=== PATIENT | male | born 1955 | race Caucasian/White ===

== ENCOUNTER 2017-03-23 18:40 | Inpatient (IN) | payer BC, OTHER, SELFPAY ==
[~2017-03-23] VITALS: Ht 177.8 cm; Wt 85.7 kg
[~2017-03-23 18:40] MED LIST: CARV12.511 PO; DUTA0.5C15 PO; HYDR-4154 PO; LISI-617 PO; ONDA4TAB9 PO; SODI650T PO
[2017-03-23] MEDS ORDERED: METOPROLOL TARTRATE 1 MG/ML 5ML VIAL IV ONE ×2 (19:12→20:34)
[2017-03-23] MEDS ORDERED: NITROGLYCERIN 1GM/1 INCH PACKET TD ONE (19:12)
[2017-03-23 19:31] LABS: BASOPHILS % (AUTO) 0.5 % (0.0-5.0); EOSINOPHILS % (AUTO) 0.8 % (0.0-8.0); HEMATOCRIT 37.6 % (42-54); LYMPHOCYTES % (AUTO) 8.5 % (21.0-51.0); MEAN CORPUSCULAR HGB CONC 34.8 g/dL (32.0-36.0); MEAN CORPUSCULAR VOLUME 92.1 fL (79-99); MONOCYTES % (AUTO) 9.1 % (3.0-13.0); NEUTROPHILS % (AUTO) 81.1 % (40.0-77.0); PLATELET COUNT (AUTO) 278 K/uL (130-400); RED BLOOD CELL COUNT(AUTO) 4.08 MIL/uL (4.50-6.20); RED CELL DISTRIBUTION WIDTH 13.6 % (11.0-15.5); WHITE BLOOD COUNT (AUTO) 13.6 K/uL (4.8-10.8)
[2017-03-23 19:59] LABS: CREATININE 1.6 mg/dL (0.5-1.5); POTASSIUM 4.2 mmol/L (3.5-5.1)
[2017-03-23 20:22] LABS: ALBUMIN 3.4 g/dL (3.5-5.0); BILIRUBIN,TOTAL 0.4 mg/dL (0.2-1.0); TOTAL PROTEIN, SERUM 6.9 g/dL (6.0-8.3)
[2017-03-23 20:25] LABS: APPEARANCE,URINE Clear (CLEAR); BILIRUBIN,URINE Negative (NEGATIVE); COLOR,URINE Yellow (YELLOW); GLUCOSE, URINE (UA) Negative (NEGATIVE); KETONES,URINE Negative (NEGATIVE); LEUKOCYTE ESTERASE ,URINE Negative (NEGATIVE); NITRATE,URINE Negative (NEGATIVE); OCCULT BLOOD,URINE Negative (NEGATIVE); PH,URINE 6.5 (5.0-8.0); PROTEIN,URINE Negative (NEGATIVE); UROBILINOGEN,URINE 0.2 mg/dL (0.2-1.0)
[2017-03-23] MEDS ORDERED: HYDROMORPHONE 1 MG/1 ML AMP ONE (20:40)
[2017-03-23 20:46] LABS: CREATINE KINASE MB 0.7 ng/mL (0.5-3.6)
[2017-03-23] MEDS ORDERED: HYDRALAZINE HCL 20 MG/ML VIAL IV PRN ×3 (22:15→23:45)
[2017-03-23] MEDS: SODIUM CHLORIDE 0.9% 1000ML 1,000 ML IV SCH ×2 (22:15→22:33)
[2017-03-23] MEDS ORDERED: LIDOCAINE HCL-MPF 1% 2ML VIAL IVP PRN (22:45)
[2017-03-23] MEDS ORDERED: ONDANSETRON HCL 4 MG/2 ML VIAL IV PRN (22:45)
[2017-03-23] MEDS ORDERED: POTASSIUM CHLORIDE 20MEQ/100ML 100 ML IV PRN (22:45)
[2017-03-23] MEDS ORDERED: POTASSIUM CHLORIDE 10% ELIXIR 20 MEQ/15 ML UDCUP PO PRN (22:45)
[2017-03-23] MEDS ORDERED: POTASSIUM CHLORIDE 20 MEQ ERTAB PO PRN (22:45)
[2017-03-23] MEDS ORDERED: MEPERIDINE-PF 25 MG/ML SYG IVP PRN (22:45)
[2017-03-23] MEDS ORDERED: MEPERIDINE-PF 25 MG/ML SYG ONE (23:47)
[2017-03-24] MEDS ORDERED: SODIUM CHLORIDE 0.9% 1000ML 1,000 ML IV ONE (04:10)
[2017-03-24] MEDS ORDERED: HYDRALAZINE HCL 20 MG/ML VIAL ONE ×3 (04:10→12:56)
[2017-03-24] MEDS ORDERED: MEPERIDINE-PF 25 MG/ML SYG ONE ×3 (04:11→12:56)
[2017-03-24 06:18] LABS: HEMATOCRIT 36.6 % (42-54); MEAN CORPUSCULAR HGB CONC 34.3 g/dL (32.0-36.0); MEAN CORPUSCULAR VOLUME 93.3 fL (79-99); PLATELET COUNT (AUTO) 254 K/uL (130-400); RED BLOOD CELL COUNT(AUTO) 3.92 MIL/uL (4.50-6.20); RED CELL DISTRIBUTION WIDTH 13.6 % (11.0-15.5); WHITE BLOOD COUNT (AUTO) 14.1 K/uL (4.8-10.8)
[2017-03-24] MEDS: SODIUM CHLORIDE 0.9% 1000ML 1,000 ML IV SCH ×6 (06:33→22:33)
[2017-03-24 06:48] LABS: ALANINE AMINOTRANSFERASE 16 U/L (12-78); ALBUMIN 3.3 g/dL (3.5-5.0); AMYLASE 90 U/L (25-115); ASPARTATE AMINOTRANSFERASE 15 U/L (10-37); BILIRUBIN,TOTAL 0.7 mg/dL (0.2-1.0); CARBON DIOXIDE 27 mmol/L (21-32); CHLORIDE 96 mmol/L (101-111); CREATINE KINASE MB 0.6 ng/mL (0.5-3.6); CREATINE KINASE, TOTAL 77 U/L (21-232); CREATININE 1.2 mg/dL (0.5-1.5); GLOMERULAR FILTR. RATE CALC 65 mL/min (>60); GLUCOSE,RANDOM 120 mg/dL (70-105); LIPASE 422 U/L (114-286); MYOGLOBIN 72 ng/mL (10-92); POTASSIUM 4.1 mmol/L (3.5-5.1); SODIUM SERUM 131 mmol/L (136-145); TOTAL PROTEIN, SERUM 6.8 g/dL (6.0-8.3); TROPONIN I < 0.04 ng/mL (0.00-0.06); UREA NITROGEN, BLOOD 13 mg/dL (7-18)
[2017-03-24] MEDS ORDERED: FAMOTIDINE/PF 20 MG/2 ML VIAL IV ONE (08:03)
[2017-03-24] MEDS ORDERED: LABETALOL HCL 5 MG/ML 20ML VIAL IV ONE (08:04)
[2017-03-24] MEDS ORDERED: ONDANSETRON HCL 4 MG/2 ML VIAL ONE (08:18)
[2017-03-24] MEDS: LABETALOL 20 MG/4 ML DISP.SYRIN IV SCH ×2 (09:00→20:22)
[2017-03-24] MEDS: FAMOTIDINE/PF 20 MG/2 ML VIAL IV SCH ×2 (09:00→20:22)
[2017-03-24] MEDS: CREON 24000 UNIT PO SCH ×2 (14:00→21:00)
[2017-03-24] MEDS: SODIUM BICARBONATE 650 MG TAB PO SCH ×2 (14:00→21:00)
[2017-03-24 17:06] VITALS: BP 159/67
[2017-03-24 19:25] VITALS: BP 182/100
[2017-03-24] MEDS: CARVEDILOL 25 MG TABLET PO SCH (21:00)
[2017-03-24 21:45] VITALS: BP 183/94
[2017-03-24] MEDS: MEPERIDINE-PF 25 MG/ML SYG IV PRN (23:11)
[2017-03-24 23:15] VITALS: BP 199/100
[2017-03-25] VITALS (8 sets, daily range): BP systolic 141–169; BP diastolic 80–97
[2017-03-25] MEDS ORDERED: OMEP20CA10 PO (02:32)
[2017-03-25] MEDS ORDERED: IRON18TA PO (02:32)
[2017-03-25] MEDS ORDERED: CHOL200074 PO (02:32)
[2017-03-25] MEDS ORDERED: AMYL1CAP63 PO (02:32)
[2017-03-25] MEDS: MEPERIDINE-PF 25 MG/ML SYG IV PRN ×2 (03:54→18:37)
[2017-03-25 04:56] LABS: HEMATOCRIT 32.8 % (42-54); MEAN CORPUSCULAR HEMOGLOBIN 32.1 pg (27.0-33.0); MEAN CORPUSCULAR HGB CONC 34.6 g/dL (32.0-36.0); MEAN CORPUSCULAR VOLUME 92.7 fL (79-99); PLATELET COUNT (AUTO) 198 K/uL (130-400); RED BLOOD CELL COUNT(AUTO) 3.54 MIL/uL (4.50-6.20); RED CELL DISTRIBUTION WIDTH 13.4 % (11.0-15.5); WHITE BLOOD COUNT (AUTO) 13.4 K/uL (4.8-10.8)
[2017-03-25 05:05] LABS: CREATININE 1.2 mg/dL (0.5-1.5); POTASSIUM 3.8 mmol/L (3.5-5.1)
[2017-03-25] MEDS: SODIUM CHLORIDE 0.9% 1000ML 1,000 ML IV SCH ×4 (05:44→20:22)
[2017-03-25] MEDS: AVODART 0.5 MG PO SCH (09:00)
[2017-03-25] MEDS: CREON 24000 UNIT PO SCH ×3 (09:00→21:00)
[2017-03-25] MEDS: FERROUS SULFATE 325 MG TABLET.DR PO SCH (09:00)
[2017-03-25] MEDS: CARVEDILOL 25 MG TABLET PO SCH ×2 (09:00→21:00)
[2017-03-25] MEDS: LISINOPRIL 10 MG TABLET PO SCH (09:00)
[2017-03-25] MEDS: SODIUM BICARBONATE 650 MG TAB PO SCH ×3 (09:00→21:00)
[2017-03-25] MEDS: FAMOTIDINE/PF 20 MG/2 ML VIAL IV SCH ×2 (09:25→20:21)
[2017-03-25] MEDS: LABETALOL 20 MG/4 ML DISP.SYRIN IV SCH ×2 (09:27→20:22)
[2017-03-26 03:20] VITALS: BP 172/88
[2017-03-26 04:40] VITALS: BP 164/97
[2017-03-26] MEDS: SODIUM CHLORIDE 0.9% 1000ML 1,000 ML IV SCH (05:48)
[2017-03-26 05:52] LABS: HEMATOCRIT 30.5 % (42-54); MEAN CORPUSCULAR HEMOGLOBIN 32.7 pg (27.0-33.0); MEAN CORPUSCULAR HGB CONC 34.9 g/dL (32.0-36.0); MEAN CORPUSCULAR VOLUME 93.9 fL (79-99); PLATELET COUNT (AUTO) 190 K/uL (130-400); RED BLOOD CELL COUNT(AUTO) 3.24 MIL/uL (4.50-6.20); RED CELL DISTRIBUTION WIDTH 13.8 % (11.0-15.5); WHITE BLOOD COUNT (AUTO) 11.3 K/uL (4.8-10.8)
[2017-03-26 06:18] LABS: CREATININE 1.2 mg/dL (0.5-1.5); POTASSIUM 3.5 mmol/L (3.5-5.1)
[2017-03-26 07:30] VITALS: BP 174/98
[2017-03-26] MEDS: FERROUS SULFATE 325 MG TABLET.DR PO SCH (09:00)
[2017-03-26] MEDS: AVODART 0.5 MG PO SCH (09:00)
[2017-03-26] MEDS: LISINOPRIL 10 MG TABLET PO SCH (09:00)
[2017-03-26] MEDS: CARVEDILOL 25 MG TABLET PO SCH (09:00)
[2017-03-26] MEDS: CREON 24000 UNIT PO SCH (09:00)
[2017-03-26] MEDS: SODIUM BICARBONATE 650 MG TAB PO SCH (09:00)
[2017-03-26] MEDS: LABETALOL 20 MG/4 ML DISP.SYRIN IV SCH (09:04)
[2017-03-26] MEDS: FAMOTIDINE/PF 20 MG/2 ML VIAL IV SCH (09:04)
[2017-03-26 09:50] VITALS: BP 159/85
[2017-03-26 11:00] VITALS: BP 152/76
== END 2017-03-26 12:15 | disposition home or self-care (01) | DRG 439 ==
LOC: EDH 18:40 → EDHIP 20:50 → OBSVTOIN 03-24 10:14 → 3CH 03-24 16:30
PROVIDERS: ADMIT Family Medicine; ATTEND Family Medicine
DX: K85.90 Acute pancreatitis without necrosis or infection, unspecified (principal); E87.1 Hypo-osmolality and hyponatremia; E11.22 Type 2 diabetes mellitus with diabetic chronic kidney disease; N18.9 Chronic kidney disease, unspecified; F10.10 Alcohol abuse, uncomplicated; I12.9 Hypertensive chronic kidney disease with stage 1 through stage 4 chronic kidney disease, or unspecified chronic kidney disease; K21.9 Gastro-esophageal reflux disease without esophagitis; Z93.2 Ileostomy status; Z88.8 Allergy status to other drugs, medicaments and biological substances; Z91.048 Other nonmedicinal substance allergy status
CPT/HCPCS: 36415; 71046; 74021; 74176; 80048; 80053; 81003; 82150; 82550; 82553; 83690; 83874; 84478; 84484; 85025; 85027; 93005; G0378; J0360; J1170; J2175; J2405; J3490; J7030

== ENCOUNTER 2017-08-11 20:05 | Inpatient (IN) | payer BC ==
[~2017-08-11] VITALS: Ht 180.3 cm; Wt 80.9 kg
[~2017-08-11 20:05] MED LIST changes: +AMYL1CAP63 PO; +CHOL200074 PO; -DUTA0.5C15 PO; +DUTA0.5C17 PO; -HYDR-4154 PO; +IRON18TA PO; +OMEP20CA10 PO; -ONDA4TAB9 PO
[2017-08-11 20:40] LABS: BASOPHILS % (AUTO) 0.6 % (0.0-5.0); EOSINOPHILS % (AUTO) 2.3 % (0.0-8.0); HEMATOCRIT 40.1 % (42-54); LYMPHOCYTES % (AUTO) 14.1 % (21.0-51.0); MEAN CORPUSCULAR HEMOGLOBIN 30.5 pg (27.0-33.0); MEAN CORPUSCULAR HGB CONC 34.9 g/dL (32.0-36.0); MEAN CORPUSCULAR VOLUME 87.4 fL (79-99); MONOCYTES % (AUTO) 15.2 % (3.0-13.0); NEUTROPHILS % (AUTO) 67.8 % (40.0-77.0); PLATELET COUNT (AUTO) 373 K/uL (130-400); RED BLOOD CELL COUNT(AUTO) 4.59 MIL/uL (4.50-6.20); RED CELL DISTRIBUTION WIDTH 13.1 % (11.0-15.5); WHITE BLOOD COUNT (AUTO) 13.2 K/uL (4.8-10.8)
[2017-08-11 20:54] LABS: APPEARANCE,URINE Clear (CLEAR); BILIRUBIN,URINE Negative (NEGATIVE); COLOR,URINE Yellow (YELLOW); GLUCOSE, URINE (UA) Negative (NEGATIVE); KETONES,URINE Trace mg/dL (NEGATIVE); LEUKOCYTE ESTERASE ,URINE Negative (NEGATIVE); NITRATE,URINE Negative (NEGATIVE); OCCULT BLOOD,URINE Trace (NEGATIVE); PROTEIN,URINE POS 2+ (NEGATIVE)
[2017-08-11 20:54] LABS: INR 1.01 (0.85-1.15); PARTIAL THROMBOPLASTIN TIME 28.5 SEC (26.3-35.5); PROTHROMBIN TIME 10.6 SEC (9.6-11.6)
[2017-08-11 20:57] LABS: ALBUMIN 3.5 g/dL (3.5-5.0); BILIRUBIN,TOTAL 0.8 mg/dL (0.2-1.0); POTASSIUM 4.3 mmol/L (3.5-5.1); TOTAL PROTEIN, SERUM 7.9 g/dL (6.0-8.3)
[2017-08-11 20:59] LABS: B-TYPE NATRIURETIC PEPTIDE 12 pg/mL (0-100)
[2017-08-11 21:01] LABS: BACTERIA,URINE Few /HPF (None Seen); FINE GRANULAR CASTS,URINE 0-2 /LPF (None Seen); MUCUS,URINE Few LPF (None Seen); RBC,URINE 0-1 /HPF (0-1); SQUAMOUS EPITHELIAL CELL,UR 0-2 /HPF (0-2); WBC,URINE None Seen /HPF (0-1)
[2017-08-11 21:04] LABS: CREATININE 14.3 mg/dL (0.5-1.5)
[2017-08-11 21:21] LABS: RAPID GROUP A STREP NEGATIVE (NEGATIVE)
[2017-08-11] MEDS ORDERED: CEFTRIAXONE SODIUM 1 GM ONE (22:20)
[2017-08-11] MEDS ORDERED: ACETAMINOPHEN 325 MG TAB PO PRN ×2 (22:30)
[2017-08-11] MEDS: SODIUM CHLORIDE 0.9% 1000ML 1,000 ML IV SCH (22:30)
[2017-08-11] MEDS ORDERED: ONDANSETRON HCL MDV 20ML 2 MG/ML VIAL IVP PRN (22:30)
[2017-08-11] MEDS: CEFTRIAXONE SODIUM 1 GM IVP SCH (23:00)
[2017-08-11] MEDS: HEPARIN SODIUM 5000UNIT/ML 1ML VIAL SQ SCH (23:00)
[2017-08-12] MEDS ORDERED: LORAZEPAM 2 MG/ML 1 ML VIAL ONE (03:13)
[2017-08-12 03:33] LABS: EOSINOPHILS % (AUTO) 2.7 % (0.0-8.0); HEMATOCRIT 37.8 % (42-54); LYMPHOCYTES % (AUTO) 19.9 % (21.0-51.0); MEAN CORPUSCULAR HEMOGLOBIN 30.6 pg (27.0-33.0); MEAN CORPUSCULAR HGB CONC 33.9 g/dL (32.0-36.0); MEAN CORPUSCULAR VOLUME 90.5 fL (79-99); MONOCYTES % (AUTO) 14.8 % (3.0-13.0); NEUTROPHILS % (AUTO) 61.6 % (40.0-77.0); PLATELET COUNT (AUTO) 276 K/uL (130-400); RED BLOOD CELL COUNT(AUTO) 4.18 MIL/uL (4.50-6.20); RED CELL DISTRIBUTION WIDTH 13.6 % (11.0-15.5); WHITE BLOOD COUNT (AUTO) 15.7 K/uL (4.8-10.8)
[2017-08-12 03:38] LABS: ALBUMIN 3.3 g/dL (3.5-5.0); BILIRUBIN,TOTAL 0.7 mg/dL (0.2-1.0); POTASSIUM 4.5 mmol/L (3.5-5.1); TOTAL PROTEIN, SERUM 7.2 g/dL (6.0-8.3)
[2017-08-12] MEDS ORDERED: SODIUM CHLORIDE 0.9% 100 ML IV ONE (03:38)
[2017-08-12 03:40] LABS: CREATININE 13.4 mg/dL (0.5-1.5)
[2017-08-12] MEDS ORDERED: LORAZEPAM 2 MG/ML 1 ML VIAL IVP PRN ×2 (05:00→10:30)
[2017-08-12] MEDS: SODIUM CHLORIDE 0.9% 1000ML 1,000 ML IV SCH ×3 (05:10→23:08)
[2017-08-12] MEDS: FOLIC ACID 1 MG TABLET PO SCH (09:00)
[2017-08-12] MEDS: FAMOTIDINE/PF 20 MG/2 ML VIAL IV SCH (09:00)
[2017-08-12] MEDS: THIAMINE HCL 100 MG/ML 2ML VIAL IM SCH (09:00)
[2017-08-12] MEDS: HEPARIN SODIUM 5000UNIT/ML 1ML VIAL SQ SCH ×2 (09:00→21:00)
[2017-08-12] MEDS: MULTIVITAMIN TABLET PO SCH (09:00)
[2017-08-12] MEDS ORDERED: SODIUM CHLORIDE 0.9% 1000ML 1,000 ML IV ONE (09:15)
[2017-08-12] MEDS ORDERED: FAMOTIDINE/PF 20 MG/2 ML VIAL IV ONE (09:16)
[2017-08-12] MEDS ORDERED: THIAMINE HCL 100 MG/ML 2ML VIAL ONE (09:17)
[2017-08-12 10:44] VITALS: BP 111/63
[2017-08-12] MEDS ORDERED: COMPOUND IV MISC 1 EACH IVSOLN MISC PRN (12:00)
[2017-08-12] MEDS ORDERED: TRAMADOL HCL 50 MG TABLET PO PRN (13:15)
[2017-08-12 13:18] LABS: CREATININE,URINE RANDOM 107 mg/dL (30-135); SODIUM,URINE RANDOM 38 mmol/l (40-220)
[2017-08-12] MEDS: LEVETIRACETAM 500 MG in SODIUM CHLORIDE 0.9% 100 ML IV SCH ×2 (14:00→21:41)
[2017-08-12 16:41] VITALS: BP 136/84
[2017-08-12 19:50] VITALS: BP 133/78
[2017-08-12] MEDS: CEFTRIAXONE SODIUM 1 GM IVP SCH (23:08)
[2017-08-12 23:35] VITALS: BP 131/78
[2017-08-13 03:55] VITALS: BP 130/77
[2017-08-13 05:14] LABS: HEMATOCRIT 34.9 % (42-54); MEAN CORPUSCULAR HEMOGLOBIN 31.1 pg (27.0-33.0); MEAN CORPUSCULAR HGB CONC 34.8 g/dL (32.0-36.0); MEAN CORPUSCULAR VOLUME 89.3 fL (79-99); PLATELET COUNT (AUTO) 230 K/uL (130-400); RED BLOOD CELL COUNT(AUTO) 3.91 MIL/uL (4.50-6.20); RED CELL DISTRIBUTION WIDTH 13.3 % (11.0-15.5); WHITE BLOOD COUNT (AUTO) 8.8 K/uL (4.8-10.8)
[2017-08-13 05:24] LABS: INR 1.03 (0.85-1.15); PARTIAL THROMBOPLASTIN TIME 29.4 SEC (26.3-35.5); PROTHROMBIN TIME 10.8 SEC (9.6-11.6)
[2017-08-13 05:40] LABS: ALBUMIN 2.7 g/dL (3.5-5.0); B-TYPE NATRIURETIC PEPTIDE 91 pg/mL (0-100); BILIRUBIN,TOTAL 0.3 mg/dL (0.2-1.0); CREATININE 6.8 mg/dL (0.5-1.5); MAGNESIUM 1.4 mg/dL (1.80-2.40); PHOSPHORUS 4.9 mg/dL (2.5-4.9); POTASSIUM 3.6 mmol/L (3.5-5.1); THYROID STIMULATING HORMONE 0.74 uIU/mL (0.36-3.74); TOTAL PROTEIN, SERUM 6.5 g/dL (6.0-8.3); URIC ACID 10.2 mg/dL (2.6-7.2)
[2017-08-13 05:50] LABS: % IRON SATURATION 41.8 % (30-44)
[2017-08-13 05:52] LABS: BAND NEUTROPHILS % (MANUAL) 3 % (0-2); BASOPHILS % (MANUAL) 1 % (0-2); EOSINOPHILS % (MANUAL) 3 % (1-6); LYMPHOCYTES % (MANUAL) 12 % (22-44); MAN.DIFF COMMENT-IMPRESSION MANUAL DIFFERENTIAL; MONOCYTES % (MANUAL) 11 % (2-9); SEGMENTED NEUTROPHILS % 70 % (40-70)
[2017-08-13 05:53] LABS: PLATELET MORPHOLOGY COMMENT ADEQUATE
[2017-08-13] MEDS: LEVETIRACETAM 500 MG in SODIUM CHLORIDE 0.9% 100 ML IV SCH ×2 (06:00→14:00)
[2017-08-13] MEDS: SODIUM CHLORIDE 0.9% 1000ML 1,000 ML IV SCH ×3 (06:40→23:36)
[2017-08-13 07:53] VITALS: BP 138/75
[2017-08-13] MEDS: HEPARIN SODIUM 5000UNIT/ML 1ML VIAL SQ SCH ×2 (09:00→21:00)
[2017-08-13] MEDS: FOLIC ACID 1 MG TABLET PO SCH (09:17)
[2017-08-13] MEDS: MULTIVITAMIN TABLET PO SCH (09:17)
[2017-08-13] MEDS: THIAMINE HCL 100 MG/ML 2ML VIAL IM SCH (09:18)
[2017-08-13] MEDS: FAMOTIDINE/PF 20 MG/2 ML VIAL IV SCH (09:18)
[2017-08-13] MEDS: FOLIC ACID/VITAMIN B COMP W-C 1 MG CAPSULE PO SCH (09:19)
[2017-08-13] MEDS: MAGNESIUM 2GM PREMIX 50ML 50 ML IV SCH (10:00)
[2017-08-13] MEDS ORDERED: BENZONATATE 100 MG CAPSULE PO PRN (10:15)
[2017-08-13 12:14] VITALS: BP 139/81
[2017-08-13 16:55] VITALS: BP 158/88
[2017-08-13 20:20] VITALS: BP 149/88
[2017-08-13 20:28] VITALS: BP 149/88
[2017-08-13] MEDS: CEFTRIAXONE SODIUM 1 GM IVP SCH (23:17)
[2017-08-14 00:28] VITALS: BP 153/90
[2017-08-14 04:32] VITALS: BP 154/85
[2017-08-14 05:58] LABS: HEMATOCRIT 34.5 % (42-54); MEAN CORPUSCULAR HEMOGLOBIN 31.2 pg (27.0-33.0); MEAN CORPUSCULAR HGB CONC 34.6 g/dL (32.0-36.0); MEAN CORPUSCULAR VOLUME 90.3 fL (79-99); PLATELET COUNT (AUTO) 243 K/uL (130-400); RED BLOOD CELL COUNT(AUTO) 3.82 MIL/uL (4.50-6.20); RED CELL DISTRIBUTION WIDTH 13.2 % (11.0-15.5); WHITE BLOOD COUNT (AUTO) 8.3 K/uL (4.8-10.8)
[2017-08-14 06:07] LABS: CREATININE 3.3 mg/dL (0.5-1.5); MAGNESIUM 1.3 mg/dL (1.80-2.40); POTASSIUM 3.8 mmol/L (3.5-5.1); URIC ACID 6.8 mg/dL (2.6-7.2)
[2017-08-14 07:41] LABS: EOSINOPHILS % (MANUAL) 3 % (1-6); LYMPHOCYTES % (MANUAL) 21 % (22-44); MAN.DIFF COMMENT-IMPRESSION MANUAL DIFFERENTIAL; MONOCYTES % (MANUAL) 9 % (2-9); PLATELET MORPHOLOGY COMMENT ADEQUATE; SEGMENTED NEUTROPHILS % 67 % (40-70)
[2017-08-14 08:12] VITALS: BP 158/93
[2017-08-14] MEDS: HEPARIN SODIUM 5000UNIT/ML 1ML VIAL SQ SCH (09:00)
[2017-08-14] MEDS: SODIUM CHLORIDE 0.9% 1000ML 1,000 ML IV SCH (09:01)
[2017-08-14] MEDS: FOLIC ACID/VITAMIN B COMP W-C 1 MG CAPSULE PO SCH (09:10)
[2017-08-14] MEDS: MULTIVITAMIN TABLET PO SCH (09:10)
[2017-08-14] MEDS: FOLIC ACID 1 MG TABLET PO SCH (09:11)
[2017-08-14] MEDS: FAMOTIDINE/PF 20 MG/2 ML VIAL IV SCH (09:11)
[2017-08-14] MEDS: THIAMINE HCL 100 MG/ML 2ML VIAL IM SCH (09:14)
[2017-08-14] MEDS: MAGNESIUM 2GM PREMIX 50ML 50 ML IV SCH (09:53)
[2017-08-14 11:18] VITALS: BP 149/100
[2017-08-14 16:05] VITALS: BP 174/105
[2017-08-14] MEDS ORDERED: MAGN400T25 PO (17:16)
[2017-08-14] MEDS ORDERED: AMLO5TAB2 PO (17:16)
[2017-08-14 19:15] VITALS: BP 167/92
== END 2017-08-14 20:32 | disposition home or self-care (01) | DRG 683 ==
LOC: EDH 20:05 → EDHIP 22:01 → 4BH 08-12 09:52
PROVIDERS: ADMIT Internal Medicine Nephrology; ATTEND Internal Medicine Nephrology
PROC: 4A00X4Z Measurement of Central Nervous Electrical Activity, External Approach (ICD-10-PCS; principal; 2017-08-14)
DX: N17.9 Acute kidney failure, unspecified (principal); E87.1 Hypo-osmolality and hyponatremia; E72.20 Disorder of urea cycle metabolism, unspecified; F05 Delirium due to known physiological condition; R56.9 Unspecified convulsions; I12.9 Hypertensive chronic kidney disease with stage 1 through stage 4 chronic kidney disease, or unspecified chronic kidney disease; E86.0 Dehydration; D64.9 Anemia, unspecified; E83.42 Hypomagnesemia; F10.10 Alcohol abuse, uncomplicated; N18.9 Chronic kidney disease, unspecified; N40.0 Benign prostatic hyperplasia without lower urinary tract symptoms
CPT/HCPCS: 36415; 70450; 70551; 71045; 73020; 76700; 80048; 80053; 81001; 82140; 82150; 82550; 82570; 82728; 83540; 83550; 83605; 83690; 83735; 83880; 83935; 84100; 84300; 84443; 84484; 84550; 85025; 85610; 85730; 87040; 87507; 87804; 87880; 95819; A4218; J0696; J1644; J1953; J2060; J3411; J3475; J3490; J7030

== ENCOUNTER → 2023-07-18 | Outpatient (CLI) | payer MEDICARE ==
[~2023-07-18] MED LIST changes: +AMLO-257 PO; -DUTA0.5C17 PO; +DUTA0.5C37 PO; -LISI-617 PO; +MAGN400T25 PO; -OMEP20CA10 PO; +OMEP20CA12 PO
== END | disposition home or self-care (01) ==
LOC: RAH 10:30
PROVIDERS: ATTEND Family Medicine
DX: Z01.818 Encounter for other preprocedural examination (principal); I51.7 Cardiomegaly; M47.815 Spondylosis without myelopathy or radiculopathy, thoracolumbar region
CPT/HCPCS: 71046

== ENCOUNTER → 2023-11-18 | Outpatient (CLI) | payer MEDICARE | END | disposition home or self-care (01) | LOC: RAH 10:47 | PROVIDERS: ATTEND Family Medicine | DX: M19.012 Primary osteoarthritis, left shoulder (principal); M19.011 Primary osteoarthritis, right shoulder; M25.512 Pain in left shoulder; M25.511 Pain in right shoulder | CPT/HCPCS: 73030 ==

== ENCOUNTER → 2024-03-18 | Outpatient (CLI) | payer MEDICARE ==
--- NOTE | 2024-03-18 11:17 | HMCIMG ---
US BREAST COMPLETE UNILATERAL REASON: MASTODYNIA, LOCALIZED ENLARGED LYMPH NODES. COMPARISON: None TECHNIQUE: Left breast ultrasound study was performed. FINDINGS: No evidence of cystic or hypoechoic mass is seen of left breast. There is left axillary lymph node measuring 10 x 5 x 10 mm. If needed, mammogram may be helpful. IMPRESSION: No evidence of cystic or hypoechoic mass is seen of left chest.
== END | disposition home or self-care (01) ==
LOC: RAH 10:31
PROVIDERS: ATTEND Family Medicine
DX: N64.4 Mastodynia (principal); R59.0 Localized enlarged lymph nodes
CPT/HCPCS: 76641